=== PATIENT | male | born 1965 | race Caucasian/White ===

== ENCOUNTER 2017-11-22 06:13 | Day surgery (SDC) | payer MEDICARE, OTHER ==
[~2017-11-22 06:13] MED LIST: Lactated Ringers 1,000 ML IV SCH
[2017-11-22] MEDS ORDERED: Lactated Ringers 1,000 ML IV SCH (07:00)
[2017-11-22] MEDS ORDERED: Midazolam 1 MG/ML 2 ML SDV ONE (07:35)
[2017-11-22] MEDS ORDERED: Propofol 200 MG/20 ML SDV ONE ×2 (07:35→07:57)
[2017-11-22] MEDS ORDERED: fentaNYL 100 MCG/2 ML SDV ONE (07:35)
--- NOTE | 2017-11-22 10:53 | OR ---
DATE OF PROCEDURE: 11/22/2017 PREOPERATIVE DIAGNOSIS: Colon cancer screening. Father had colon cancer. POSTOPERATIVE DIAGNOSES: Small polyp at 80 cm from the anal verge. Erythematous pigmented lesion, small, 80 cm from the anal verge. Father had colon cancer. PROCEDURES: Colonoscopy to the cecum with biopsy resection of small polyp at 80 cm from the anal verge and erythematous lesion at 80 cm from the anal verge. SURGEON: Shahid Montoya MD. ANESTHESIA: IV anesthesia with monitored anesthesia care. INDICATION: This 52-year-old white male is referred for his first colonoscopy for screening. His father had colon cancer. I counseled him for a colonoscopy with possible biopsy and/or polypectomy including risks and alternatives, and he gave his informed consent to proceed. DESCRIPTION OF PROCEDURE: The patient was placed in the left lateral decubitus position. IV anesthesia was administered by the Anesthesia Service. Time-out was held. A rectal exam was performed, which was unremarkable. The flexible video Olympus colonoscope was introduced through his anus, up his rectum, and out his colon all the way to the cecum. En route, at about 80 cm from the anal verge, we saw a small erythematous pigmented lesion and also just proximal to that a small polyp. We removed both with the biopsy forceps and sent them separately to the laboratory. Once the cecum was reached, the scope was slowly withdrawn, examining the mucosa throughout. No additional mucosal abnormalities were noted. The scope was retroflexed in the rectum with the distal rectum appearing unremarkable. The scope was straightened and removed. He tolerated the procedure well. Shahid Montoya MD /[id number] MTDD
== END 2017-11-22 09:17 | disposition home or self-care (01) ==
LOC: JP.SDS 06:13
PROVIDERS: ATTEND Surgery
DX: Z12.11 Encounter for screening for malignant neoplasm of colon (principal); D12.6 Benign neoplasm of colon, unspecified; G89.29 Other chronic pain; M54.5 Low back pain; E11.9 Type 2 diabetes mellitus without complications; K21.9 Gastro-esophageal reflux disease without esophagitis; Z80.0 Family history of malignant neoplasm of digestive organs; Z88.1 Allergy status to other antibiotic agents; Z88.8 Allergy status to other drugs, medicaments and biological substances; Z79.899 Other long term (current) drug therapy
CPT/HCPCS: 45380; J2250; J2704; J3010; J7120; 88305

== ENCOUNTER 2020-11-18 08:17 | Day surgery (SDC) | payer MEDICARE, MEDICAID ==
[~2020-11-18 08:17] MED LIST changes: -Lactated Ringers 1,000 ML IV SCH; +Sodium Chloride 0.9% 1,000 ML IV SCH
[2020-11-18] MEDS ORDERED: Midazolam 1 MG/ML 2 ML SDV ONE (08:23)
[2020-11-18] MEDS ORDERED: fentaNYL 100 MCG/2 ML SDV ONE (08:23)
[2020-11-18] MEDS ORDERED: Propofol 200 MG/20 ML SDV ONE (08:23)
[2020-11-18] MEDS ORDERED: Dextrose 5%-Lactated Ringers 1,000 ML IV SCH (09:00)
--- NOTE | 2020-11-28 13:24 | OR ---
DATE OF PROCEDURE: 11/18/2020 SURGEON: Aroldo Adams MD PREOPERATIVE DIAGNOSIS: History of colon polyps. POSTOPERATIVE DIAGNOSIS: Normal colonoscopic examination with no recurrent polyps. OPERATIVE PROCEDURE: Flexible colonoscopy. ANESTHESIA: IV sedation. INDICATION FOR PROCEDURE: A 55-year-old with a history of previous colon polyps, presenting for followup colonoscopy. Plan is to proceed with colonoscopy with biopsies and polypectomy as indicated. Potential risks including bleeding and perforation were discussed, and the patient wishes to proceed. DETAILS OF PROCEDURE: The patient was taken to the operating room and placed in a left lateral decubitus position. IV sedation was administered, after which the initial digital rectal exam was performed, was unremarkable. Colonoscope was then passed into the rectum with retroflexion revealing uncomplicated hemorrhoidal columns. Scope was then eventually passed through the cecum. The prep was fairly good and there were a few areas of scattered stool causing mucosal surfaces were not well visualized. Up to that level, no abnormalities were noted. Specifically no areas of diverticulosis. No areas of colitis and no polyps or other signs of neoplasia identified. The scope was then withdrawn. The above findings were reconfirmed, and the procedure then concluded. There were no complications. Given the patient's history of colon polyps, his next colonoscopy should be scheduled in 5 years. Aroldo Adams MD /[id number]
== END 2020-11-18 11:38 | disposition home or self-care (01) ==
LOC: JP.SDS 08:17
PROVIDERS: ATTEND Surgery
DX: Z12.11 Encounter for screening for malignant neoplasm of colon (principal); Z86.010 Personal history of colon polyps; E11.40 Type 2 diabetes mellitus with diabetic neuropathy, unspecified; E66.9 Obesity, unspecified; Z68.34 Body mass index [BMI] 34.0-34.9, adult
CPT/HCPCS: G0105; J2250; J2704; J3010; J7121

== ENCOUNTER 2021-10-20 11:39 | Emergency (ER) | payer MEDICARE ==
[2021-10-20] MEDS ORDERED: Lidocaine 1% with EPINEPHrine 1:100,000 50 ML MDV INFILT ONE (12:15)
[2021-10-20] MEDS ORDERED: Bacitracin Oint 1 GM U/D Packet TOP ONE (12:16)
--- NOTE | 2021-10-20 13:09 | EDM.PDOC ---
ED HPI GENERAL MEDICAL PROBLEM - General Chief Complaint: Laceration Stated Complaint: LEFT LEG CUT ON ICE AUGER Time Seen by Provider: 10/20/21 12:15 Source of Information: Reports: Patient History Limitations: Reports: No Limitations - History of Present Illness INITIAL COMMENTS - FREE TEXT/NARRATIVE: 55-year-old male rubbed his left lower leg against a brand-new blade on an ice auger sustaining a laceration just prior to arrival. He has bandages pressed against the wound and there is no active bleeding currently. No other injury. Onset: Sudden Duration: Hour(s): (1 hour ago) Location: Reports: Lower Extremity, Left Associated Symptoms: Reports: No Other Symptoms - Related Data Allergies Allergy/AdvReac Type Severity Reaction Status Date / Time cephalexin Allergy Hives Verified 11/22/17 06:50 oxycodone AdvReac Nausea and Verified 11/14/20 13:50 Vomiting Home Meds: Home Meds Ibuprofen [Motrin] 800 mg PO TID PRN 11/13/17 [History] Omeprazole Magnesium [Prilosec Otc] 20 mg PO DAILY 11/13/17 [History] Pregabalin [Lyrica] 150 mg PO TID 11/13/17 [History] metFORMIN HCl [Metformin HCl] 1,000 mg PO BID 11/13/17 [History] glipiZIDE [Glucotrol] 10 mg PO BID 11/10/20 [History] Past Medical History Gastrointestinal History: Reports: Colon Polyp, GERD Musculoskeletal History: Reports: Arthritis, Back Pain, Chronic, Fibromyalgia Neurological History: Reports: None, CVA Endocrine/Metabolic History: Reports: Diabetes, Type II - Infectious Disease History Infectious Disease History: Reports: Chicken Pox, Measles - Past Surgical History GI Surgical History: Reports: None, Colonoscopy, Hernia, Abdominal Endocrine Surgical History: Reports: None Neurological Surgical History: Reports: Lumbar Spine Musculoskeletal Surgical History: Reports: None Social & Family History - Family History Family Medical History: No Pertinent Family History - Tobacco Use Tobacco Use Status *Q: Never Tobacco User - Caffeine Use Caffeine Use: Reports: Coffee - Recreational Drug Use Recreational Drug Use: No ED ROS GENERAL - Review of Systems Review Of Systems: See Below Constitutional: Denies: Fever, Chills Respiratory: Reports: No Symptoms Cardiovascular: Reports: No Symptoms GI/Abdominal: Reports: No Symptoms Skin: Reports: Other (Laceration on the left leg) Neurological: Denies: Paresthesia Psychiatric: Reports: No Symptoms ED EXAM, SKIN/RASH Exam: See Below Exam Limited By: No Limitations General Appearance: Alert, No Apparent Distress Head: Atraumatic Respiratory/Chest: No Respiratory Distress, Lungs Clear Cardiovascular: Regular Rate, Rhythm Extremities: Other (Exam otherwise limited to the left lower leg. The patient has a 5 cm longitudinal laceration on the lateral aspect of the lower leg which is into the subcutaneous tissue) Neurological: Alert, Oriented Course - Vital Signs Last Recorded V/S: Last Vital Signs Temp 97.6 F 10/20/21 12:07 Pulse 75 10/20/21 12:07 Resp 16 10/20/21 12:07 BP 159/80 H 10/20/21 12:07 Pulse Ox 96 10/20/21 12:07 - Orders/Labs/Meds Meds: Medications Discontinued Medications Generic Name Dose Route Start Last Admin Trade Name Iram PRN Reason Stop Dose Admin Bacitracin 1 dose 10/20/21 12:16 10/20/21 12:25 Bacitracin Oint 1 Gm U/D Packet TOP 10/20/21 12:17 1 dose ONETIME ONE Administration Lidocaine/Epinephrine 30 ml 10/20/21 12:15 10/20/21 12:25 Lidocaine 1% With Epinephrine 1:100,000 50 Ml Mdv INFILT 10/20/21 12:16 30 ml ONETIME ONE Administration - Re-Assessments/Exams Free Text/Narrative Re-Assessment/Exam: 10/20/21 13:34 The wound was infiltrated with 1% lidocaine 10/20/21 13:36 Wound was then cleansed thoroughly with saline removing some clots. There were no other foreign bodies. The wound was then closed with six 4-0 Ethilon interrupted sutures. Topical bacitracin and a bandage was applied. Departure - Departure Time of Disposition: 13:15 Disposition: Home, Self-Care 01 Clinical Impression: Laceration of left leg Qualifiers: Encounter type: initial encounter Qualified Code(s): S81.812A - Laceration without foreign body, left lower leg, initial encounter - Discharge Information Instructions: Laceration Care, Adult Referrals: Jane Abraham PA [Primary Care Provider] - Forms: ED Department Discharge Care Plan Goals: Keep wound covered and clean while healing. Wash gently daily and increase activity as tolerated. Sutures can be removed in 10 days, Saturday or Saturday of the week after next. Return sooner if concerns of infection or not healing satisfactorily. Sepsis Event Note (ED) - Evaluation Sepsis Screening Result: No Definite Risk - Focused Exam Vital Signs: Vital Signs Temp Pulse Resp BP Pulse Ox 10/20/21 12:07 97.6 F 75 16 159/80 H 96 10/20/21 11:57 97.6 F 75 16 159/80 H 96
== END 2021-10-20 13:16 | disposition home or self-care (01) ==
LOC: JP.ED 11:39
DX: S81.812A Laceration without foreign body, left lower leg, initial encounter (principal); E11.9 Type 2 diabetes mellitus without complications; K21.9 Gastro-esophageal reflux disease without esophagitis; Z86.73 Personal history of transient ischemic attack (TIA), and cerebral infarction without residual deficits; Z88.1 Allergy status to other antibiotic agents; Z88.5 Allergy status to narcotic agent; Z79.84 Long term (current) use of oral hypoglycemic drugs; Z79.899 Other long term (current) drug therapy; W26.8XXA Contact with other sharp object(s), not elsewhere classified, initial encounter
CPT/HCPCS: 12002; 99282-25

== ENCOUNTER 2021-11-30 06:37 | Emergency (ER) | payer MEDICARE ==
[2021-11-30] MEDS ORDERED: Sodium Chloride 0.9% 10 ML Syringe FLUSH PRN ×2 (06:44)
[2021-11-30] MEDS ORDERED: Sodium Chloride 0.9% 10 ML Syringe FLUSH ONE (06:56)
[2021-11-30] MEDS ORDERED: Sodium Chloride 0.9% 100 ML IV SCH (07:00)
[2021-11-30] MEDS ORDERED: Iopamidol 755 Mg/ML 100 ML Bottle IV SCH (07:00)
== END 2021-11-30 09:13 | disposition home or self-care (01) ==
LOC: JP.ED 06:37
DX: R42 Dizziness and giddiness (principal); K21.9 Gastro-esophageal reflux disease without esophagitis; M19.90 Unspecified osteoarthritis, unspecified site; E11.9 Type 2 diabetes mellitus without complications; Z88.1 Allergy status to other antibiotic agents; Z88.5 Allergy status to narcotic agent; Z79.82 Long term (current) use of aspirin; Z79.84 Long term (current) use of oral hypoglycemic drugs; Z79.899 Other long term (current) drug therapy
CPT/HCPCS: 36415; 70450; 70496; 70498; 80053; 83605; 84484; 85025; 93005; 99284; Q9967

== ENCOUNTER 2024-09-06 08:03 | Emergency (ER) | payer MEDICARE ==
[2024-09-06] MEDS ORDERED: Naloxone 0.4 MG/ML SDV IVPUSH PRN (09:24)
[2024-09-06 09:38] LABS: BASOPHILS ABSOLUTE AUTO 0.11 K/uL (0.00-0.10); BASOPHILS PERCENT AUTO 1.2 % (0.1-1.3); EOSINOPHILS ABSOLUTE AUTO 0.09 K/uL (0.00-0.40); HEMOGLOBIN 16.2 g/dL (12.9-16.9); IMMATURE GRAN ABSOLUTE AUTO 0.03 K/uL (0.00-0.23); IMMATURE GRAN PERCENT AUTO 0.3 % (0.0-0.7); LYMPHOCYTES ABSOLUTE AUTO 1.02 K/uL (0.8-3.3); LYMPHOCYTES PERCENT AUTO 10.9 % (11.4-47.7); MEAN CORPUSCULAR HEMOGLOBIN 29.3 pg (31.6-35.5); MEAN CORPUSCULAR VOLUME 81.5 fL (81.4-99.0); MONOCYTES ABSOLUTE AUTO 0.69 K/uL (0.20-0.90); MONOCYTES PERCENT AUTO 7.4 % (3.3-12.6); NEUTROPHILS PERCENT AUTO 79.2 % (40.0-78.1); PLATELET COUNT,PLT 210 K/uL (130-375); RED BLOOD CELL COUNT 5.52 M/uL (4.14-5.76); WHITE BLOOD CELL COUNT,WBC 9.3 K/uL (3.2-11.0)
[2024-09-06] MEDS: Sodium Chloride 0.9% 1,000 ML IV ONE (09:40)
[2024-09-06] MEDS: HYDROmorphone 0.5 MG/0.5 ML Syringe IVPUSH PRN (09:40)
[2024-09-06] MEDS: Ondansetron 4 MG/2 ML SDV IVPUSH ONE (09:40)
[2024-09-06] MEDS: Sodium Chloride 0.9% 60 ML IV STA (10:15)
[2024-09-06] MEDS: Iopamidol 612 MG/ML 100 ML Bottle IV STA (10:15)
[2024-09-06 10:16] LABS: ALANINE AMINOTRANSFERASE,ALT 29 U/L (12-78); ALBUMIN 3.6 g/dL (3.4-5.0); ALKALINE PHOSPHATASE 109 U/L (46-116); ASPARTATE AMNIOTRANSFERASE,AST 15 U/L (15-37); BILIRUBIN TOTAL 0.6 mg/dL (0.2-1.0); BLOOD UREA NITROGEN,BUN 10 mg/dL (7-18); CALCIUM 9.2 mg/dL (8.5-10.1); CARBON DIOXIDE,CO2 28 mmol/L (21-32); CHLORIDE,CL 99 mmol/L (100-108); EST CRCL DRUG DOSING (CG) 93.22 mL/min; ESTIMATED GFR 88 mL/min (>60); GLUCOSE RANDOM 228 mg/dL (74-106); POTASSIUM,K 4.2 mmol/L (3.6-5.2); PROTEIN TOTAL,TP 7.1 g/dL (6.4-8.2); SODIUM,NA 135 mmol/L (140-148)
[2024-09-06 10:17] LABS: ANION GAP 12.2 mmol/L (5.0-14.0)
[2024-09-06 11:56] LABS: APPEARANCE,URINE CLEAR (CLEAR); BILIRUBIN,URINE NEGATIVE (NEGATIVE); COLOR,URINE YELLOW (YELLOW); GLUCOSE,URINE 100 mg/dL (NEGATIVE); KETONES,URINE NEGATIVE (NEGATIVE); LEUKOCYTE ESTERASE,URINE NEGATIVE (NEGATIVE); NITRITE,URINE NEGATIVE (NEGATIVE); OCCULT BLOOD,URINE NEGATIVE (NEGATIVE); PROTEIN,URINE NEGATIVE (NEGATIVE); UROBILINOGEN,URINE 0.2 EU/dL (0.2-1.0)
[2024-09-06 12:08] LABS: AMORPHOUS SEDIMENT,URINE RARE; BACTERIA,URINE NOT SEEN; EPITHELIAL CELLS,URINE NOT SEEN; MUCUS,URINE NOT SEEN; RBC,URINE NOT SEEN (0-5); WBC,URINE NOT SEEN (0-5)
== END 2024-09-06 13:00 | disposition home or self-care (01) ==
LOC: JP.ED 08:03
DX: K59.04 Chronic idiopathic constipation (principal); E11.9 Type 2 diabetes mellitus without complications; Z86.73 Personal history of transient ischemic attack (TIA), and cerebral infarction without residual deficits; Z79.84 Long term (current) use of oral hypoglycemic drugs; Z79.82 Long term (current) use of aspirin; Z88.1 Allergy status to other antibiotic agents; Z88.5 Allergy status to narcotic agent
CPT/HCPCS: 36415; 74177; 80053; 80307; 81001; 83605; 83690; 85025; 96361; 96374; 96375; 99284; J1171; J2405; J3490; J7030; Q9967

== ENCOUNTER 2025-03-14 11:25 | Emergency (ER) | payer MEDICARE ==
[2025-03-14] MEDS: Bacitracin Oint 1 GM U/D Packet TOP ONE (13:24)
== END 2025-03-14 13:35 | disposition home or self-care (01) ==
LOC: JP.ED 11:25
DX: S81.012A Laceration without foreign body, left knee, initial encounter (principal); X50.9XXA Other and unspecified overexertion or strenuous movements or postures, initial encounter
CPT/HCPCS: 12004; 99282; 99283